=== PATIENT | female | born 1935 | race Caucasian/White ===

== ENCOUNTER 2019-01-08 08:08 | Emergency (ER) | payer OTHER ==
[2019-01-08 08:15] VITALS: BP 173/74; PULSE 83; TEMP 98.3; BMI 32.2
--- NOTE | 2019-01-08 09:24 | PDOC ---
History of Present Illness - General Chief Complaint: Rash Stated Complaint: FACE SWOLLEN/ RED - History of Present Illness Initial Comments: 01/08/19 09:17 CHIEF COMPLAINT: eye/facial swelling HISTORY OF PRESENT ILLNESS: 83 yo F with hx of HTN, HLD s/p pacemaker presents to [facility] with bilateral facial swelling since last night. Daughter reports that initially the patient had "a little red on her forehead" and then she had a little redness to her cheeks last night prior to going to sleep, but when the patient woke up this morning her face was swollen. Patient reports that she feels "tightness" and throbbing to her cheeks and under her eyes. Denies pain or itching to the site of the redness/swelling. Denies chest pain, shortness of breath. No recent travel or sick contacts. PAST MEDICAL HISTORY: Denies past medical history FAMILY HISTORY: Denies SOCIAL HISTORY: Denies tobacco, alcohol, illicit drug use. SURGICAL HISTORY: Denies ALLERGIES: No known drug allergies REVIEW OF SYSTEMS General/Constitutional: Denies fever or chills. Denies weakness, weight change. HEENT: Facial/eye swelling and redness since last night. Denies change in vision. Denies ear pain or discharge. Denies sore throat. Cardiovascular: Denies chest pain or shortness of breath. Respiratory: Denies cough, wheezing, or hemoptysis. Gastrointestinal: Denies nausea, vomiting, diarrhea or constipation. Denies rectal bleeding. Genitourinary: Denies dysuria, frequency, or change in urination. Musculoskeletal: Denies joint or muscle swelling or pain. Denies neck or back pain. Skin and breasts: Denies rash or easy bruising. Neurologic: Denies headache, vertigo, loss of consciousness, or loss of sensation. PHYSICAL EXAM General Appearance: Well-appearing, appropriately dressed. No apparent distress. HEENT: Bilateral periorbital edema and erythema extending across nasal bridge and to b/l cheeks. Erythema to medial forehead. EOMI, PERRLA, normal ENT inspection, normal voice, TMs normal, pharynx normal. No conjunctival pallor. No photophobia, scleral icterus. Neck: Supple. Trachea midline. No tenderness, rigidity, carotid bruit, stridor , lymphadenopathy, or thyromegaly. Respiratory/Chest: Lungs CTAB. No shortness of breath, chest tenderness, respiratory distress, accessory muscle use. No crackles, rales, rhonchi, stridor , wheezing, dullness Cardiovascular: RRR. S1, S2. No JVD, murmur, bradycardia, tachycardia. Vascular Pulses: Dorsalis-Pedis (R): 2+, Dorsalis-Pedis (L): 2+ Gastrointestinal/Abdominal: Normal bowel sounds. Abdomen soft, non-distended. No tenderness or rebound tenderness. No organomegaly, pulsatile mass, guarding , hernia, hepatomegaly, splenomegaly. Lymphatic: No adenopathy, tenderness. Musculoskeletal/Extremities: Normal inspection. FROM of all extremities, normal capillary refill. Pelvis Stable. No CVA tenderness. No tenderness to extremities, pedal edema, swelling, erythema or deformity. Integumentary: Appropriate color, dry, warm. No cyanosis, erythema, jaundice or rash Neurologic: [employer] II-XII intact. Fully oriented, alert. Appropriate mood/affect. Motor strength 5/5. No appreciable EOM palsy, facial droop or sensory deficit. Past History - Past Medical History Allergies/Adverse Reactions: Allergies Allergy/AdvReac Type Severity Reaction Status Date / Time No Known Allergies Allergy Verified 01/08/19 08:15 Home Medications: Ambulatory Orders predniSONE [Deltasone -] 40 mg PO DAILY #8 tablet 01/08/19 Cardiac Disorders: Yes COPD: No HTN: Yes - Surgical History Cardiac Surgery: Yes (pacemaker) - Suicide/Smoking/Psychosocial Hx Smoking History: Never smoked *Physical Exam - Vital Signs Last Vital Signs Temp Pulse Resp BP Pulse Ox 98.3 F 83 18 173/74 H 99 01/08/19 08:12 01/08/19 08:12 01/08/19 08:12 01/08/19 08:12 01/08/19 08:12 ED Treatment Course - LABORATORY CBC & Chemistry Diagram: 01/08/19 09:53 01/08/19 09:53 Medical Decision Making - Medical Decision Making 01/08/19 09:22 83 yo F with hx of HTN, HLD s/p pacemaker presents to [facility] with bilateral facial swelling since last night. -ua -labs Note: Patient was initially triaged to [facility]. After review of the history of present illness and physical examination by Nurse Practitioner, the patient was transfered to the main ED for higher lever of care. The patient is medically stable for transfer, ED attending and charge nurse/main ED nursing staff aware. Given pt age and significant hx, concern for renal dysfunction. Will transfer to main ED for further workup. Discussed case with attending MD Koch and gas charger Rylee. *DC/Admit/Observation/Transfer Diagnosis at time of Disposition: Facial swelling - Discharge Dispostion Disposition: HOME Condition at time of disposition: Improved - Prescriptions Prescriptions: predniSONE [Deltasone -] 40 mg PO DAILY #8 tablet - Referrals Referrals: Suzanna Rivera [Non Staff, Medical] - - Patient Instructions Printed Discharge Instructions: DI for Angioedema Additional Instructions: The cause of your facial swelling is unclear it may be due to the medications, please stop taking your enalapril until you see your doctor. Take benadryl for any itching. Takethe prednisone as prescribed. - Post Discharge Activity
[2019-01-08] MEDS ORDERED: methylPREDNISolone NA SUCC 125 MG/2 ML VIAL IVPUSH ONE (09:58)
[2019-01-08] MEDS ORDERED: FAMOTIDINE 20 MG/50 ML IVPB 20 MG/50 ML MG IVPB ONE ×2 (09:58→10:07)
--- NOTE | 2019-01-08 10:02 | PDOC ---
*Physical Exam - Vital Signs Last Vital Signs Temp Pulse Resp BP Pulse Ox 98.3 F 83 18 173/74 H 99 01/08/19 08:12 01/08/19 08:12 01/08/19 08:12 01/08/19 08:12 01/08/19 08:12 Heart Score/ECG Review - ECG Impressions Comment:: 01/08/19 10:21 Twelve-lead EKG was performed and reviewed by me. There is normal sinus rhythm with a normal rate. rate of 70 lbbb no prior ekg for comparison ED Treatment Course - LABORATORY CBC & Chemistry Diagram: 01/08/19 09:53 01/08/19 09:53 Medical Decision Making - Medical Decision Making 01/08/19 10:02 83y icelandic speaking female, hx of afib on eliquis, htn, hl sp pm, presents with complaint of facial swelling since yesterday. Pt states she developed some itching and redness on her forehead yesterday and gradually developed swelling in her cheeks and forehead. pt denies any associated pain, fever/chills, sob, changes in her voice, coughin/wheezing, nv, cp, abd pain, back pain,. no hx of allergies, no recent new meds including bp meds, abx. Denies any new lotions/ creams, soaps, foods, medications. PMD: Dr. Rivera physical exam: GENERAL: The patient is awake, alert, and fully oriented, Nontoxic - in no acute distress. HEAD: Normocephalic, atraumatic, Moderate swelling of cheeks and forehead EYES: extraocular movements intact, sclera anicteric, conjunctiva clear. ENT: Normal voice, Moist mucous membranes. airway patent, no respiratory distress, no stridor NECK: Normal range of motion, supple LUNGS: Breath sounds equal, clear to auscultation bilaterally. No wheezes, no rhonchi, no rales. HEART: Regular rate and rhythm, normal S1 and S2 without murmur, rub or gallop. ABDOMEN: Soft, nontender, No guarding, no rebound. No CVA tenderness EXTREMITIES: Normal range of motion, trace edema b/l with neg homans sign NEUROLOGICAL: No facial assymetry, Normal speech, moving all 4 ext spontneously and symmetrically PSYCH: Normal mood, normal affect. SKIN: Warm, Dry, normal turgor, possible allergic reaction, cnonspecific skin eruption does not apepar to be tense angioedema, but consider ZANE-i induced angioedema will give steroids/benadryl/pepcid will continue to monitor no airway invoement at this time 01/08/19 11:41 pt doing well labs reviewed no signs of renal failure will dc her ACEi until pmd fu return precautions were discussed I discussed the physical exam findings, ancillary test results and final diagnoses with the patient. I answered all of the patient's questions. The patient was satisfied with the care received and felt comfortable with the discharge plan and treatment plan. The patient will call their primary care physician within 24 hours to arrange follow-up and will return to the Emergency Department with any new, persistent or worsening symptoms. 01/08/19 12:01 *DC/Admit/Observation/Transfer Diagnosis at time of Disposition: Facial swelling - Discharge Dispostion Disposition: HOME Condition at time of disposition: Improved Decision to Admit order: No - Prescriptions Prescriptions: predniSONE [Deltasone -] 40 mg PO DAILY #8 tablet - Referrals Referrals: Suzanna Rivera [Non Staff, Medical] - - Patient Instructions Printed Discharge Instructions: DI for Angioedema Additional Instructions: The cause of your facial swelling is unclear it may be due to the medications, please stop taking your enalapril until you see your doctor. Take benadryl for any itching. Takethe prednisone as prescribed. - Post Discharge Activity
[2019-01-08] MEDS ORDERED: methylPREDNISolone NA SUCC 125 MG/2 ML VIAL ONE (10:07)
[2019-01-08 10:16] LABS: BASO % 0.6 % (0-2.0); EOS % 5.8 % (0-4.5); HEMATOCRIT 36.2 % (32.4-45.2); HEMOGLOBIN 11.9 GM/dL (10.7-15.3); LYMPH % 24.8 % (8-40); MCH 28.3 pg (25.7-33.7); MCHC 32.9 g/dl (32.0-36.0); MEAN CELL VOLUME 86.2 fl (80-96); MEAN PLT VOLUME 8.3 fl (7.5-11.1); MONO % 6.2 % (3.8-10.2); NEUT % 62.6 % (42.8-82.8); PLATELET COUNT 269 K/MM3 (134-434); WHITE BLOOD COUNT 7.7 K/mm3 (4.0-10.0)
[2019-01-08 10:33] LABS: ALBUMIN 3.5 g/dl (3.4-5.0); BILIRUBIN,TOTAL 0.3 mg/dL (0.2-1); BLOOD UREA NITROGEN 22.8 mg/dL (7-18); CALCIUM 9.3 mg/dL (8.5-10.1); CREATININE 1.2 mg/dL (0.55-1.3); POTASSIUM 4.6 mmol/L (3.5-5.1); TOT PROT 7.2 g/dl (6.4-8.2)
--- NOTE | 2019-01-09 16:57 | EKG ---
Test Reason : Blood Pressure : / mmHG Vent. Rate : 070 BPM Atrial Rate : 070 BPM P-R Int : 136 ms QRS Dur : 130 ms QT Int : 458 ms P-R-T Axes : 093 -02 259 degrees QTc Int : 494 ms SINUS RHYTHM WITH OCCASIONAL AV dual-paced complexes LEFT BUNDLE BRANCH BLOCK ABNORMAL ECG NO PREVIOUS ECGS AVAILABLE Confirmed by BRAYAN PORTER MD ([id number]) on 01/09/2019 4:57:04 PM Referred By: Confirmed By:BRAYAN PORTER MD
== END 2019-01-08 11:55 | disposition home or self-care (01) ==
LOC: JERFT 08:08 → JER 08:08
PROC: 3E033GC Introduction of Other Therapeutic Substance into Peripheral Vein, Percutaneous Approach (ICD-10-PCS; principal; 2019-01-08)
PROC: 3E033GC Introduction of Other Therapeutic Substance into Peripheral Vein, Percutaneous Approach (ICD-10-PCS; 2019-01-08)
PROC: 3E0333Z Introduction of Anti-inflammatory into Peripheral Vein, Percutaneous Approach (ICD-10-PCS; 2019-01-08)
DX: R22.0 Localized swelling, mass and lump, head (principal); I10 Essential (primary) hypertension; I48.91 Unspecified atrial fibrillation; Z79.01 Long term (current) use of anticoagulants; Z95.0 Presence of cardiac pacemaker
CPT/HCPCS: 36415; 80053; 85025; 93005; 93010; 96365; 96375; 99283-25

== ENCOUNTER 2022-01-18 13:06 | Observation (INO) | payer OTHER ==
[2022-01-18 13:11] VITALS: BMI 33.8
[2022-01-18] MEDS ORDERED: ALBUTEROL SO4 2.5/IPRATROPIUM 0.5 INH SOL 3 ML VIAL.NEB. NEB ONE ×2 (13:30→13:33)
[2022-01-18 14:04] LABS: BASO % 0.8 % (0-2.0); EOS % 2.2 % (0-4.5); HEMOGLOBIN 12.4 GM/dL (10.7-15.3); LYMPH % 37.4 % (8-40); MCH 27.9 pg (25.7-33.7); MCHC 32.6 g/dl (32.0-36.0); MEAN CELL VOLUME 85.8 fl (80-96); MEAN PLT VOLUME 8.1 fl (7.5-11.1); MONO % 6.7 % (3.8-10.2); NEUT % 52.9 % (42.8-82.8); PLATELET COUNT 295 10^3/uL (134-434); RBC 4.43 M/mm3 (3.60-5.2); RDW 14.6 % (11.6-15.6); WHITE BLOOD COUNT 7.4 K/mm3 (4.0-10.0)
[2022-01-18 14:20] LABS: BLOOD UREA NITROGEN 22.3 mg/dL (7-18); CALCIUM 8.8 mg/dL (8.5-10.1)
[2022-01-18 14:21] LABS: ALBUMIN 3.6 g/dl (3.4-5.0)
[2022-01-18 14:25] LABS: BILIRUBIN,TOTAL 0.5 mg/dL (0.2-1); TOT PROT 7.5 g/dl (6.4-8.2)
[2022-01-18] MEDS ORDERED: FUROSEMIDE 40 MG/4 ML INJECTABLE VIAL IVPUSH ONE (17:23)
[2022-01-18] MEDS ORDERED: FUROSEMIDE 40 MG/4 ML INJECTABLE VIAL ONE (17:33)
[2022-01-19 08:42] LABS: INR 1.82 (0.83-1.09); PROTHROMBIN TIME (PATIENT) 21.1 SEC (9.7-13.0)
[2022-01-19 08:45] LABS: ACTIVATED PTT 32.1 SECONDS (25.2-36.5)
[2022-01-19 08:48] LABS: BASO % 0.7 % (0-2.0); EOS % 4.3 % (0-4.5); HEMOGLOBIN 11.9 GM/dL (10.7-15.3); LYMPH % 39.5 % (8-40); MEAN CELL VOLUME 85.4 fl (80-96); MEAN PLT VOLUME 8.4 fl (7.5-11.1); MONO % 7.4 % (3.8-10.2); NEUT % 48.1 % (42.8-82.8); PLATELET COUNT 241 10^3/uL (134-434); RDW 14.6 % (11.6-15.6); WHITE BLOOD COUNT 5.7 K/mm3 (4.0-10.0)
[2022-01-19 09:04] LABS: CALCIUM 8.4 mg/dL (8.5-10.1)
[2022-01-19 09:06] LABS: ALBUMIN 3.4 g/dl (3.4-5.0); BLOOD UREA NITROGEN 22.1 mg/dL (7-18); MAGNESIUM 2.1 mg/dL (1.8-2.4)
[2022-01-19 09:09] LABS: CREATININE 0.9 mg/dL (0.55-1.3)
[2022-01-19 09:10] LABS: BILIRUBIN,TOTAL 0.8 mg/dL (0.2-1); TOT PROT 6.9 g/dl (6.4-8.2)
[2022-01-19] MEDS: ASPIRIN 81 MG CHEWABLE TABLETS PO SCH (10:13)
[2022-01-19] MEDS: METHIMAZOLE 10 MG TABLET PO SCH (10:13)
[2022-01-19] MEDS: amLODIPine BESYLATE 5 MG TABLET (FP) PO SCH (10:13)
[2022-01-19] MEDS: APIXABAN 5 MG TABLET PO SCH ×2 (10:13→22:47)
[2022-01-19] MEDS: FUROSEMIDE 40 MG TABLET (FP) PO SCH (10:49)
[2022-01-19 15:11] LABS: EPI CELLS 3 /uL (0-25.1); HYALINE CASTS 1 /uL (0-3.1); URINE APPEARANCE CLEAR; URINE BACTERIA 25 /uL (0-1359); URINE BILIRUBIN NEGATIVE (NEGATIVE); URINE COLOR YELLOW; URINE GLUCOSE (UA) NEGATIVE (NEGATIVE); URINE KETONE NEGATIVE (NEGATIVE); URINE LEUK ESTERASE NEGATIVE (NEGATIVE); URINE NITRITE NEGATIVE (NEGATIVE); URINE PROTEIN NEGATIVE (NEGATIVE); URINE RBC 4 /uL (0-23.9); URINE UROBILINOGEN 0.2 mg/dL (0.2-1.0); URINE WBC 5 /uL (0-25.8)
[2022-01-19] MEDS: ATORVASTATIN CA 10 MG TABLET (FP) PO SCH (22:46)
[2022-01-20 08:26] LABS: BLOOD UREA NITROGEN 23.1 mg/dL (7-18); CALCIUM 8.5 mg/dL (8.5-10.1)
[2022-01-20 08:29] LABS: CREATININE 1.1 mg/dL (0.55-1.3)
[2022-01-20] MEDS: FUROSEMIDE 40 MG TABLET (FP) PO SCH (11:27)
[2022-01-20] MEDS: ASPIRIN 81 MG CHEWABLE TABLETS PO SCH (11:27)
[2022-01-20] MEDS: METHIMAZOLE 10 MG TABLET PO SCH (11:27)
[2022-01-20] MEDS: amLODIPine BESYLATE 5 MG TABLET (FP) PO SCH (11:27)
[2022-01-20] MEDS: APIXABAN 5 MG TABLET PO SCH ×2 (11:27→22:43)
[2022-01-20] MEDS: ATORVASTATIN CA 10 MG TABLET (FP) PO SCH (22:43)
[2022-01-21 07:37] VITALS: PULSE 111
[2022-01-21 07:56] LABS: CALCIUM 8.5 mg/dL (8.5-10.1)
[2022-01-21 07:57] LABS: BLOOD UREA NITROGEN 24.7 mg/dL (7-18)
[2022-01-21 08:00] LABS: CREATININE 1.1 mg/dL (0.55-1.3)
[2022-01-21] MEDS: amLODIPine BESYLATE 5 MG TABLET (FP) PO SCH (09:26)
[2022-01-21] MEDS: APIXABAN 5 MG TABLET PO SCH (09:26)
[2022-01-21] MEDS: ASPIRIN 81 MG CHEWABLE TABLETS PO SCH (09:26)
[2022-01-21] MEDS: FUROSEMIDE 40 MG TABLET (FP) PO SCH (09:28)
[2022-01-21] MEDS: METHIMAZOLE 10 MG TABLET PO SCH (09:28)
[2022-01-21 10:41] VITALS: BP 128/66; RESP 18; TEMP 98.2
[2022-01-21 11:40] LABS: BASO % 0.7 % (0-2.0); EOS % 4.6 % (0-4.5); HEMATOCRIT 36.4 % (32.4-45.2); HEMOGLOBIN 11.9 GM/dL (10.7-15.3); LYMPH % 31.7 % (8-40); MCH 28.1 pg (25.7-33.7); MCHC 32.8 g/dl (32.0-36.0); MEAN CELL VOLUME 85.8 fl (80-96); MEAN PLT VOLUME 8.3 fl (7.5-11.1); MONO % 7.3 % (3.8-10.2); NEUT % 55.7 % (42.8-82.8); PLATELET COUNT 274 10^3/uL (134-434); RBC 4.24 M/mm3 (3.60-5.2); RDW 14.3 % (11.6-15.6); WHITE BLOOD COUNT 6.9 K/mm3 (4.0-10.0)
[2022-01-21 11:46] LABS: ALBUMIN 3.5 g/dl (3.4-5.0); MAGNESIUM 2.1 mg/dL (1.8-2.4)
[2022-01-21 11:51] LABS: BILIRUBIN,TOTAL 0.7 mg/dL (0.2-1)
== END 2022-01-21 15:09 | disposition home or self-care (01) ==
LOC: JER 13:06 → JERBED 16:02 → J4W 21:57
PROVIDERS: ADMIT Internal Medicine; ATTEND Nurse Practitioner Acute Care
PROC: 3E0F7GC Introduction of Other Therapeutic Substance into Respiratory Tract, Via Natural or Artificial Opening (ICD-10-PCS; principal; 2022-01-18)
PROC: 3E0337Z Introduction of Electrolytic and Water Balance Substance into Peripheral Vein, Percutaneous Approach (ICD-10-PCS; 2022-01-18)
DX: I11.0 Hypertensive heart disease with heart failure (principal); I48.91 Unspecified atrial fibrillation; E78.00 Pure hypercholesterolemia, unspecified; Z95.0 Presence of cardiac pacemaker; Z79.01 Long term (current) use of anticoagulants; R06.09 Other forms of dyspnea; I50.9 Heart failure, unspecified; Z29.8 Encounter for other specified prophylactic measures; E66.8 Other obesity; Z68.33 Body mass index [BMI] 33.0-33.9, adult
CPT/HCPCS: 0241U-QW; 36415; 71045-TC-FY; 80048; 80053; 81003; 83735; 83880; 84100; 84443; 84484; 85025; 85610; 85730; 87040; 87086; 93005; 93010; 93306-TC; 94640; 96360; 97116-GP; 97162-GP; 99285-25; G0378